=== PATIENT | male | born 1975 | race Caucasian/White ===

== ENCOUNTER 2018-03-09 23:21 | Emergency (ER) | payer SELFPAY ==
[2018-03-10 02:30] LABS: CREATINE KINASE 229 UL (21-232); TROPONIN-I < 0.017 ng/mL (0.000-0.060)
== END 2018-03-10 03:06 | disposition home or self-care (01) ==
LOC: D.ER 23:21
PROVIDERS: Family Medicine
DX: R51 Headache (principal)

== ENCOUNTER → 2019-12-04 08:05 | Outpatient (CLI) | payer OTHER ==
--- NOTE | 2019-12-08 11:54 | EC ---
PATIENT:EMILEE GRAF DATE OF SERVICE: 12/04/19 SEX: M MEDICAL RECORD: [id number] DATE OF : 71 LOCATION:[facility] AGE OF PATIENT: 43 ADMISSION DATE: 12/04/19 REFERRING PHYSICIAN: INTERPRETING PHYSICIAN: SOCO LOZA MD ECHOCARDIOGRAM REPORT ECHO CHARGES 4 ECHO COMPLETE Date: 12/04/19 CLINICAL DIAGNOSIS: ANGINA/RUIZ/SOB ECHOCARDIOGRAPHIC MEASUREMENTS (adult normal given) AC root (d.<3.7cm) 3.0 cm LV Septum d (<1.2 cm> 0.7 cm Valve Excursion 1.6 cm LV Septum (systole) 1.1 cm Left Atria (s.<4.0cm> 3.6 cm LVPW d(<1.2cm) 0.8 cm RV (d.<2.3cm) 2.3 cm LVPW (sytole) 1.3 cm LV diastole(<5.6CM) 4.8 cm MV E-F(>70mm/sec) cm LV systole 3.3 cm LVOT Diameter 2.0 cm MV exc.(>10mm) cm Est.ejection fraction (50-75%) % DOPPLER: LVIT cm/sec A 51.0 cm/sec E 80.0 cm/sec LA cm/sec RVSP 17.0 mmHg LVOT 90.0 cm/sec AOP1/2T m/s Asc. Ao 112 cm/sec RVOT 64.0 cm/sec RA cm/sec PA 88.0 cm/sec AV Gradient Peak 5.1 mmHg AV Mean 2.6 mmHg AV Area 2.5 cm MV Gradient Peak 3.4 mmHg MV Mean 1.5 mmHg MV Area cm COMMENTS: OP - HC Time Clock Mechanic: 1 SKYLA BETHEL Toddler Caregiver: 1 Dr. Loza TAPE# PACS Pericardial Effusion N DATE OF SERVICE: FINDINGS: 1. Left ventricular chamber size is within normal limits. Left ventricular systolic function is normal. Overall ejection fraction estimated at 55%. 2. Left atrium, right atrium, right ventricular chamber sizes are within normal limits. 3. Valvular structures have normal structure and motion. 4. Doppler interrogation reveals trace tricuspid regurgitation, no other valvular insufficiency or stenosis. ECHOCARDIOGRAM REPORT [id number] EMILEE GRAF 5. No evidence of pericardial effusion or left ventricular thrombus. TRANSINT:[id number] Voice Confirmation ID: [id number] DOCUMENT ID: [id number] SOCO LOZA MD at 1154 CC: [id number] DICTATION DATE: 12/05/19 1004 STEM ASSEMBLER: 12/05/19 1230 DEP CLI 12/04/19 [place] [id number]
--- NOTE | 2019-12-08 11:54 | ST ---
PATIENT:EMILEE GRAF MEDICAL RECORD: [id number] SEX: M LOCATION:[facility] ORDER #: ADMISSION DATE: 12/04/19 AGE OF PATIENT: 43 REFERRING PHYSICIAN: INTERPRETING PHYSICIAN: SOCO COLES MD DATE OF SERVICE: 12/04/2019 PROCEDURE: Exercise stress test. INDICATIONS: Angina, shortness of breath. TECHNIQUE: He was exercised on standard Fernandez protocol for 8 minutes 30 seconds, stopped due to chest discomfort. He developed chest discomfort, shortness of breath requiring the test to be terminated. There were; however, no EKG changes to suggest repeating this with nuclear imaging. TRANSINT:[id number] Voice Confirmation ID: [id number] DOCUMENT ID: [id number] SOCO COLES MD at 1154 CC: [id number] DICTATION DATE: 12/05/19 1521 BLOOD DONOR UNIT ASSISTANT: 12/06/19 0657 DEP CLI 12/04/19 [place] [id number] [place] [address]
== END | disposition home or self-care (01) ==
LOC: D.HCCARDIO 08:05
PROVIDERS: ATTEND Internal Medicine Interventional Cardiology
DX: I20.9 Angina pectoris, unspecified (principal)

== ENCOUNTER → 2019-12-29 12:50 | Outpatient (CLI) | payer OTHER | END | disposition home or self-care (01) | LOC: D.HCCARDIO 09:30 | PROVIDERS: ATTEND Internal Medicine Cardiovascular Disease | DX: I20.9 Angina pectoris, unspecified (principal) ==

== ENCOUNTER 2020-01-19 09:34 | Outpatient (CLI) | payer OTHER ==
[~2020-01-19] VITALS: Ht 167.6 cm; Wt 77.3 kg
--- NOTE | ~2020-01-19 | OP ---
PATIENT NAME: EMILEE GRAF MEDICAL RECORD: [id number] :71 LOCATION:[facility] ADMISSION DATE: SURGEON: SOCO COLES MD DATE OF OPERATION: 01/19/2020 PROCEDURES: 1. PTCA stent LAD. 2. IFR. 3. Left heart catheterization. 4. Selective coronary angiography. 5. Left ventriculogram. INDICATION: Angina and coronary artery disease. PROCEDURE IN DETAIL: After informed consent was obtained and after a detailed description of the risks, benefits as well as alternative therapies, the patient elected to proceed with angiogram and heart catheterization. The right radial area was prepped and draped in normal sterile fashion. Right radial artery was cannulated via modified Seldinger technique with placement of 6-Greenlandic sheath. All catheters exchanged through this sheath. FINDINGS: Left ventriculogram was performed in standard 30-degree CHILEL view, reveals good cardiac wall motion throughout all segments. Overall ejection fraction estimated 60%. SELECTIVE CORONARY ANGIOGRAPHY: 1. Left main is with no significant angiographic disease. 2. Left anterior descending has 80% stenosis in the mid vessel and IFR is abnormal. 3. The left circumflex has mild irregularities, but no flow-limiting stenosis. 4. Right coronary has mild irregularities, but no flow-limiting stenosis. PTCA STENT OF THE LAD: The stent used was a 2.5 x 12 mm Integrity. Result was 0% residual stenosis. OVERALL IMPRESSION: Successful PTCA stent of the LAD going from 80% initial stenosis to 0% residual. TRANSINT:[id number] Voice Confirmation ID: [id number] DOCUMENT ID: [id number] SOCO COLES MD CC: [id number] DICTATION DATE: 01/19/20 1133 EXOTIC DANCER: 01/19/20 1607 DEP CLI 01/19/20 [facility] [address] [place] [address]
--- NOTE | ~2020-01-19 | HEMODYNAMI ---
PATIENT:EMILEE GRAF MEDICAL RECORD: [id number] : 71 LOCATION:[facility] ADMISSION DATE: 01/19/20 Generatedon:01/19/202011:36 Patient name: EMILEE GRAF Patient #: [id number] SSN: [id number] : 1975 Date of study: 01/19/2020 Page: Of Hemodynamic Procedure Report Patient Data Patient Demographics Procedure consent was obtained First Name: EMILEE Gender: Male Last Name: LESIA : 1975 [facility] Initial: ABILIO Age: 44 year(s) Patient #: [id number] Race: SSN: [id number] Additional ID: [id number] Contact details Address: [address] [place] [address] [address] State: [place] City: [facility] Zip code: [address] Past Medical History Allergies: No known allergies Admission Admission Data Admission Date: 01/19/2020 Admission Time: 9:34 Arrival Date: 01/19/2020 Arrival Time: 0:00 Admit Source: Other Insurance Payor: Private health insurance [facility] #: [id number] Height (in.): 66 BSA: 1.87 (m2) Height (cm.): 167.64 BMI: 27.5 (kg/m2) Weight (lbs.): 170.35 Weight (kg.): 77.27 Lab Results Lab Result Date: 01/19/2020 Lab Result Time: 0:00 Biochemistry Name Units Result Min Max BUN mg/dl 11 --(-*--)-- 7 18 Creatinine mg/dl 1.2 --(---*)-- 0.6 1.3 eGFR ml/min 69 *-(----)-- 90 120 NONAFRICAN CBC Name Units Result Min Max Hematocrit % 46.3 --(-*--)-- 42 54 Hemoglobin g/dl 15.3 --(-*--)-- 13.5 17.5 Procedure Procedure Types Cath Procedure Diagnostic Procedure [facility] w/Coronaries Sedation Charges Moderate Sedation up to 15 minutes PCI Procedure Coronary Stent Coronary Stent Initial Hemochron ACT Test Procedure Description Procedure Date Procedure Date: 01/19/2020 Procedure Start Time: 11:19 Procedure End Time: 11:33 Procedure Staff Name Function Asad Loza MD Performing Physician Kalie Henry RT Monitor Toma Puga RT Scrub Mariama Arguello RN Nurse Procedure Data Cath Procedure Fluoroscopy Diagnostic fluoroscopy Total fluoroscopy Time: 3.2 time: 3.2 min min Diagnostic fluoroscopy Total fluoroscopy dose: 347 dose: 347 mGy mGy Contrast Material Contrast Material Type Amount (ml) Isovue 370 59 Entry Location Entry Primary Successful Side Size Upsize Upsize Entry Closure Schaefer ccessful Closure Location (Fr) 1 (Fr) 2 (Fr) Remarks Device Remarks Radial Right 6 Fr Mechanical artery Short Compression Estimated blood loss: 10 ml Diagnostic catheters Device Type Used For End Catheter Placement DIAGNOSTIC [place] 110cm 5 Procedure Fr catheter ([id number]) Procedure Complications No complications Procedure Medications Medication Administration Route Dosage Oxygen etCO2 Nasal cannula 2 l/min Lidocaine 2% added to field 20 Heparin Flush Bag added to field 2 bags (1000units/500ml NS) 0.9% NaCl I.V. 100 ml/hr Radial Cocktail I.A. 1 syringe (Verapamil 2mg/Nitro 400mcg/Heparin 1500units) Versed I.V. 2 mg Fentanyl I.V. 50 mcg Versed I.V. 2 mg Fentanyl I.V. 50 mcg Heparin Bolus I.V. 4000 units Integrilin (Bolus I.V. 6.8 ml 2mg/ml) Plavix P.O. 600 mg Hemodynamics Rest BSA: 1.87 (m2) HGB: 15.3 (g/dl) O2 Consumption: Estimated: 234.44 (ml/min) O2 Co nsumption indexed: Estimated:125.37 (ml/min/m) Heart Rate: 83 (bpm) Snapshots Pre Cath Intra NCS Post Cath Vital Signs Time Heart Resp SPO2 etCO2 NIBP (mmHg) Rhythm Pain Sedation Rate (ipm) (%) (mmHg) Status Level (bpm) 11:10:07 82 13 96 34.5 127/84(101) NSR 0 (11) 10(A) , No pain 11:14:19 85 17 98 37.5 121/80(96) NSR 0 (11) 10(A) , No pain 11:18:31 82 14 96 14.2 120/79(105) NSR 0 (11) 10(A) , No pain 11:22:45 94 12 95 1.5 113/70(86) NSR 0 (11) 9(A) , No pain 11:26:59 89 12 92 0 108/54(75) NSR 0 (11) 9(A) , No pain 11:31:09 85 14 93 0.7 115/69(89) NSR 0 (11) 9(A) , No pain Medications Time Medication Route Dose Verified Delivered Reason Not es Effectiveness by by 11:09:39 Oxygen etCO2 2 l/min Asad Leslie used for Nasal Dago Arguello RN procedure cannula 11:09:41 Radial Cocktail I.A. 1 Asad Kamara for (Verapamil syringe Dago Loza MD vasodilation 2mg/Nitro 400mcg/Heparin 1500units) 11:10:13 Lidocaine 2% added 20ml Asad aKmara for local to vial Dago Loza MD anesthetic field 11:10:19 Heparin Flush added 2 bags Asad Kamara used for Bag to Dago Loza MD procedure (1000units/500ml field NS) 11:10:27 0.9% NaCl I.V. 100 Asad Leslie Per physician ml/hr Dago Arguello RN 11:14:02 Versed I.V. 2 mg Asad Levineie for sedation Dago Arguello RN 11:14:08 Fentanyl I.V. 50 mcg Asad Levineie for sedation Dago Arguello RN 11:22:18 Versed I.V. 2 mg Asad Levineie for sedation Dago Arguello RN 11:22:22 Fentanyl I.V. 50 mcg Asad Levineie for sedation Dago Arguello RN 11:27:45 Heparin Bolus I.V. 4000 Asad Leslie for aleida ified units Dago Arguello RN anticoagulation with dr loza 11:29:18 Integrilin I.V. 6.8 ml Asad Levineie for was crystal (Bolus 2mg/ml) Dago Arguello RN antiplatelet 3.2 ml therapy of vial 11:35:39 Plavix P.O. 600 mg Asad Leslie for Dago Arguello RN antiplatelet therapy Procedure Log Time Note 10:56:15 Informed consent obtained and on chart 10:57:17 Arrival Date: 01/19/2020 12:00:00 AM 10:57:26 Procedure Status Elective Heart Cath (OP). 10:57:29 Mariama Arguello RN sent for patient. Start room use. 10:57:33 Time tracking: Regular hours (M-F 7:00 - 5:00) 10:57:42 Plan of Care:Hemodynamics will remain stable., Cardiac rhythm will remain stable., Comfort level will be maintained., Respiratory function will remain adequate., Patient/ family verbilizes understanding of procedure., Procedure tolerated without complication., Recovers from procedure without complications.. 11:00:19 Patient received from Pre/Post Procedure Room to CCL 1 Alert and oriented. Tansferred to table in Supine position. 11:00:21 Warm blankets applied, and alyson hugger turned on for patient comfort. 11:00:22 Correct patient and procedure confirmed by team. 11:00:22 ECG and BP/O2 sat monitors applied to patient. 11:09:04 Vital chart was started 11:09:05 Full Disclosure recording started 11:09:14 H&P Date Dictated: 01/14/2020 Within 30 days and on chart.. 11:09:16 Pre-procedure instructions explained to patient. 11:09:16 Pre-op teaching completed and patient verbalized understanding. 11:09:19 Family unavailable. 11:09:21 Patient NPO since Midnight. 11:09:33 Patient allergic to No known allergies 11:09:37 Is the patient allergic to Iodine/contrast media? No. 11:09:39 Oxygen 2 l/min etCO2 Nasal cannula was administered by Mariama Arguello RN; used for procedure; Verbal order read back and verified. 11:09:40 Was the patient premedicated? N/A 11:09:41 Radial Cocktail (Verapamil 2mg/Nitro 400mcg/Heparin 1500units) 1 syringe I.A. was administered by Asad Loza MD; for vasodilation; Verbal order read back and verified. 11:09:42 Is patient on blood thinner?No 11:09:44 Patient diabetic? No. 11:09:46 If diabetic: On Metformin? N/A 11:09:48 ----Pre-sedation anethsthesia assessment.---- 11:09:52 Previous problem with sedation/anesthesia? No ? 11:09:55 Snore? Yes 11:09:56 Sleep apnea? No 11:09:58 Deviated septum? No 11:10:00 Opens mouth fully? Yes 11:10:01 Sticks out tongue? Yes 11:10:06 Airway obstruction? No ? 11:10:08 Dentures? No ? 11:10:10 Pre procedure: right dorsailis pedis pulse 2+ Normal; easily identifiable; not easily obliterated 11:10:12 Modified Scot's test Ulnar < 7 seconds 11:10:13 Lidocaine 2% 20ml vial added to field was administered by Asad Loza MD; for local anesthetic; Verbal order read back and verified. 11:10:15 Patient pain scale 0/10 ?. 11:10:19 Heparin Flush Bag (1000units/500ml NS) 2 bags added to field was administered by Asad Loza MD; used for procedure; Verbal order read back and verified. 11:10:21 IV patent on arrival in right antecubital with 0.9% NaCl at [facility]. 11:10:26 Lab results completed and on chart. 11:10:27 0.9% NaCl 100 ml/hr I.V. was administered by Mariama Arguello RN; Per physician; Verbal order read back and verified. 11:10:30 Stress Test: yes; normal ? 11:10:33 Right Radial & Right Groin area was prepped with chlora-prep and draped in sterile fashion 11:10:36 Alarms reviewed by R. N. 11:10:36 Sharps counted by scrub and verified by R.N. 11:11:05 Lab Result : BUN 11 mg/dl 11:11:05 Lab Result : Creatinine 1.2 mg/dl 11:11:05 Lab Result : eGFR NONAFRICAN 69 ml/min 11:11:05 Lab Result : Hemoglobin 15.3 g/dl 11:11:05 Lab Result : Hematocrit 46.3 % 11:11:12 Baseline sample Acquired. 11:11:15 Rhythm: sinus rhythm 11:11:18 Use device set Radial Dx or PCI 11:11:19 ACIST Syringe (61243) opened to sterile field. 11:11:20 Medline Cath Pack ([id number]) opened to sterile field. 11:11:20 Bag Decanter () opened to sterile field. 11:11:21 ACIST Hand Control (98991) opened to sterile field. 11:11:22 ACIST Manifold (12120) opened to sterile field. 11:11:23 Tegaderm 4 x 4 (1626W) opened to sterile field. 11:11:24 MBrace Wrist Support ([id number]) opened to sterile field. 11:11:26 EMERALD Guide Wire (963-309) opened to sterile field. 11:11:27 SHEATH 6FR RAIN (0580852) opened to sterile field. 11:11:46 Patient Height : 66 inches 11:11:49 Patient Weight : 170.35 lbs 11:11:53 Admit Source: Other 11:11:54 Insurance Payor : Private health insurance 11:12:33 --------ALL STOP TIME OUT------ 11:12:34 Final Timeout: patient, procedure, and site verified with staff and physician. All members of the team are in agreement. 11:12:37 Right Radial & Right Groin site verified by team. 11:12:41 Fire Safety Assessment: A--An alcohol-based skin anteseptic being used preoperatively., C--Open oxygen or nitrous oxide is being used., D--An ESU, laser, or fiber-optic light is being used. 11:12:45 Physical assessment completed. ASA score P 2 - A patient with mild systemic disease as per Asad Loza MD. 11:12:52 2) 60-89 Mildly reduced kidney function, and other findings (as for stage 1) point to kidney disease. 11:12:57 Maximum allowable contrast dose (3.7 X eGFR X 0.75)191 ml. 11:13:00 Sedation plan: IV Moderate Sedation Medication:Versed, Fentanyl 11:14:02 Versed 2 mg I.V. was administered by Mariama Arguello RN; for sedation; Verbal order read back and verified. 11:14:08 Fentanyl 50 mcg I.V. was administered by Mariama Arguello RN; for sedation; Verbal order read back and verified. 11:18:19 Procedure started. 11:19:41 Local anesthetic to right radial artery with Lidocaine 2% by Asad Loza MD.INITIAL ACCESS ONLY 11:20:01 A 6 Fr Short sheath was inserted into the Right Radial artery 11:20:34 A DIAGNOSTIC [place] 110cm 5 Fr catheter (315096) was advanced over the wire and used for Procedure. 11::25 LV gram done using CHILEL 11::27 Injector settings: Ml/sec: 5, Volume: 15, 11:21:56 EF : 60 % 11:22:00 LCA angiography performed. 11:22:04 Injector settings: Ml/sec: 3, Volume: 6, 11::18 Versed 2 mg I.V. was administered by Mariama Arguello RN; for sedation; Verbal order read back and verified. 11::22 Fentanyl 50 mcg I.V. was administered by Mariama Arguello RN; for sedation; Verbal order read back and verified. 11::43 RCA angiography performed. 11::46 Injector settings: Ml/sec: 3, Volume: 6, 11::57 ACCDominant side:Right 11:23:01 Proceeding to intervention. 11:23:06 Use device set LANA PCI 11:23:11 INFLATOR Merit BasixCompak (HL7415) opened to sterile field. 11:23:14 GUIDE 6FR XBLAD 3.5 catheter (58934521) opened to sterile field. 11:23:20 [place] Verrata Plus pressure wire (59643R) opened to sterile field. 11:24:18 6 Fr XBLAD 3.5 guide catheter was inserted over the wire 11:25:30 FFR/IFR wire advanced. 11:26:23 Wire advanced across lesion. 11:27:09 LAD lesion measured at .69 with IFR 11:27:45 Heparin Bolus 4000 units I.V. was administered by Mariama Arguello RN; for anticoagulation; verified with dr loza Verbal order read back and verified. 11:27:53 Pre PCI Site: [place] LAD has 80% stenosis. 11:29:18 Integrilin (Bolus 2mg/ml) 6.8 ml I.V. was administered by Mariama Arguello RN; for antiplatelet therapy; wasted 3.2 ml of vial Verbal order read back and verified. 11:29:26 Place stent Inflation Number: 1 A INTEGRITY RX 2.5 x 12 stent ([id number]) was prepped and advanced across the Mid LAD 80. The stent was deployed at 15 JEVON for 0:00 (min:sec) . 11:29:43 Stent catheter was removed intact over wire. 11::44 Wire removed. 11:29:44 Guide catheter removed. 11:30:09 ZEPHYR REGULAR TR BAND (268563) opened to sterile field. 11:30:19 Sheath removed intact; hemostasis achieved with Mechanical Compression to the Right Radial artery. 11:30:21 Procedure ended.(Physican Out) 11:31:04 Fluoroscopy time 03.20 minutes. 11:31:08 Fluoroscopy dose: 347 mGy 11:31:08 Flurop Dose total: 347 11:31:14 Dose Area Product 78177 mGy/cm. 11:31:18 Contrast amount:Isovue 370 59ml. 11:31:21 Maximum allowable dose exceeded? No. 11:31:22 Sharps counted by scrub and verified by R.N. 11:31:25 Eastern band inflated with 11cc of air. 11:31:28 Post Procedure Pulses reassessed and unchanged 11:31:31 Post procedure: right dorsailis pedis pulse 2+ Normal; easily identifiable; not easily obliterated. 11:31:34 Post-procedure physical assessment completed. ASA score P 2 - A patient with mild systemic disease as per Asad Loza MD. 11:31:36 Post procedure rhythm: unchanged. 11:31:39 Estimated blood loss: 10 ml 11:31:41 Post procedure instruction explained to patient.Patient verbalizes understanding. 11:31:41 Patient needs reinforcement of post procedure teaching. 11:32:10 Procedure type changed to Cath procedure, Diagnostic procedure, LHC, [facility] w/Coronaries, Sedation Charges, Moderate Sedation up to 15 minutes, PCI procedure, Coronary Stent, Coronary Stent Initial, Hemochron ACT Test 11:32:45 Procedure and supply charges have been captured, reviewed, submitted and are correct. 11:32:48 Procedure Complication : No complications 11:32:50 Vital chart was stopped 11:32:54 [facility] Findings: MVD- PCI performed (see procedure note) 11:32:57 Operative report dictated upon procedure completion. 11:32:58 See physician's report for complete and final results. 11:33:00 Report given to Pre/Post Procedure Room. 11:33:04 Patient transfered to Pre/Post Procedure Room with Stretcher. 11:33:06 Procedure ended. 11:33:06 Full Disclosure recording stopped 11:35:37 ACC-PCI Only Patient was given prescriptions, or instructed by Asad Loza MD to start/continue the following medications upon discharge: Plavix 11:35:38 End room use (Document Last) 11:35:39 Plavix 600 mg P.O. was administered by Mariama Arguello RN; for antiplatelet therapy; Verbal order read back and verified. 11:35:49 End room use (Document Last) 11:36:02 ACT drawn and resulted at 365 seconds. (normal therapeutic range 180-240 seconds). 11:36:06 End room use (Document Last) Intervention Summary Intervention Notes Time ActionType Lesion and Equipment Action# Pressure Duration Attributes Used 11:29:26 Place stent Mid LAD INTEGRITY RX 1 15 00:00 2.5 x 12 stent ([id number]) Device Usage Item Name Manufacture Quantity Catalog Hospital Part Current Min imal Lot# / Number Charge Number Stock Stock Serial# Code ACIST Acist 1 67683 037529 549679 849144 20 Syringe Medical (63590) Systems Inc Medline Cath Medline 1 [id number] 776715 74945 241201 5 Pack ([id number]) Bag Decanter Microtek 1 2002S 185360 44328 439044 5 (2002S) Medical Inc. ACIST Hand Acist 1 78079 187376 626561 706166 5 Control Medical (39447) Systems Inc ACIST Acist 1 31842 839131 987873 012157 5 Manifold Medical (44622) Systems Inc Tegaderm 4 x 3M 1 1626W 801027 054072 394477 5 4 (1626W) MBrace Wrist Advanced 1 140-0250-00 917064 52869 260328 5 Support Vascular (350285991) Dynamics EMERALD Cardinal 1 392-566 951428 780046 535645 5 Guide [facility] Zynstra (044-416) SHEATH 6FR Cardinal 1 5891092 056774 4238966 243562 5 [facility] (2679243) DIAGNOSTIC Terumo 1 40-4704 754283 627406 974921 5 [place] 110cm 5 Fr catheter (275633) INFLATOR Merit 1 LG3206 346376 349956 354797 15 [facility] NineSixFive BasixCompak (NP0401) GUIDE 6FR Cardinal 1 [id number] 232970 244578 200582 10 XBLAD 3.5 Health catheter (32370530) [place] 1 52226Q 332188 402901549 843637 5 Verrata Plus pressure wire (67993A) INTEGRITY RX Medtronic 1 [id number] 591804 966271 213625 5 [id number] 2.5 x 12 stent ([id number]) ZEPHYR Cardinal 1 664864 407257 8312965 469564 5 REGULAR TR Health BAND (409239) Signature Audit [place] Stage Time Signature Unsigned Intra-Procedure 01/19/2020 Kalie Henry 11:35:49 AM RT(R) Intra-Procedure 01/19/2020 Mariama Arguello RN 11:36:06 AM Intra-Procedure 01/19/2020 Asad Loza 11:36:20 AM [place] [id number] [place] [address]
[2020-01-19] MEDS ORDERED: SEROQUEL25 MG PO (09:50)
[2020-01-19] MEDS ORDERED: LIPITOR80 MG PO (09:51)
[2020-01-19] MEDS ORDERED: PROZAC20 MG PO (09:51)
[2020-01-19] MEDS ORDERED: ELAVIL25 MG PO (09:51)
[2020-01-19] MEDS ORDERED: TRAZODONE HCL150 MG PO (09:52)
[2020-01-19 10:10] VITALS: BP 117/83; Ht 167.6 cm; Wt 77.3 kg
[2020-01-19 10:22] LABS: BASOPHILS 0.1 % (0-2); EOSINOPHILS 1.7 % (0-7); HEMATOCRIT 46.3 % (42.0-54.0); HEMOGLOBIN 15.3 g/dL (13.5-17.5); IMMATURE GRANULOCYTES 0.2 % (0-5); LYMPHOCYTES 14.1 % (15-50); MCH 30.3 pg (26.0-34.0); MCV 91.7 fL (80.0-100.0); MEAN PLATELET VOLUME 9.5 fL (7.4-10.4); MONOCYTES 5.5 % (2-11); NEUTROPHILS 78.4 % (40-80); PLATELET COUNT 257 10x3/uL (130-400); RBC 5.05 10x6/uL (4.20-6.10); RDW 14.2 % (11.5-14.5); WBC 13.8 10x3/uL (4.8-10.8)
[2020-01-19 10:44] LABS: ANION GAP 7.9 mmol/L (8-16); CALCIUM 9.3 mg/dL (8.5-10.1); CARBON DIOXIDE 30.3 mmol/L (21.0-32.0); CHOL - HDL RATIO 6.7 ratio (2.3-4.9); CREATININE - SERUM 1.2 mg/dL (0.6-1.3); LDL-HDL RATIO 4.4 ratio (1.5-3.5); POTASSIUM - SERUM 4.2 mmol/L (3.5-5.1)
[2020-01-19] MEDS ORDERED: BAYER CHEWABLE81 MG PO (11:42)
[2020-01-19] MEDS ORDERED: PLAVIX75 MG PO (11:42)
--- NOTE | 2020-01-19 11:45 | NUR ---
PT REC'D TO ROOM 4 VIA STRETCHER FROM ELECTRIC POWER LINE EXAMINER. MONITORS ESTAB. PT AWAKENS EASILY. SEE DATE NIGHT CAREGIVER. ALARMS ON AND C/L IN REACH.
--- NOTE | 2020-01-19 12:00 | NUR ---
R WRIST SITE C/D/I, NO S/S BLEEDING OR HEMATOMA. VSS. ALARMS ON AND C/L IN REACH.
--- NOTE | 2020-01-19 12:45 | NUR ---
R WRIST SITE C/D/I, NO S/S BLEEDING OR HEMATOMA. PULSE PALP, BRISK CAP REFILL. VSS, C/L IN REACH.
--- NOTE | 2020-01-19 13:15 | NUR ---
R WRIST SITE C/D/I, NO S/S BLEEDING OR HEMATOMA. HAND WARM, NO NUMBNESS OR TINGLING REPORTED. VSS. PT DENIES NEEDS.
--- NOTE | 2020-01-19 13:45 | NUR ---
R WRIST SITE C/D/I, NO S/S BLEEDING OR HEMATOMA. HAND WARM WITH BRISK CAP REFILL. VSS. C/L IN REACH.
--- NOTE | 2020-01-19 14:04 | NUR ---
SPOKE WITH CARL, PT SIG OTHER TO ARRANGE PT GOING HOME AT 1530. ALL DISCHARGE INSTRUCTIONS REVIEWED INCLUDING RESTRICTIONS, MEDS AND FOLLOWUP. SHE VERBALIZES UNDERSTANDING.
--- NOTE | 2020-01-19 14:35 | NUR ---
3CC AIR REMOVED FROM Z BAND. NO S/S BLEEDING. COFFEE PROVIDED PER REQUEST.
--- NOTE | 2020-01-19 14:50 | NUR ---
TOTAL OF 6CC AIR REMOVED FROM Z BAND - NO S/S BLEEDING OR HEMATOMA. PT DENIES NEEDS. VSS. C/L IN REACH.
--- NOTE | 2020-01-19 15:11 | NUR ---
ALL OF AIR REMOVED FROM Z BAND, NO S/S BLEEDING OR SWELLING. PIV D/C'D INTACT, DSG APPLIED.
--- NOTE | 2020-01-19 15:25 | NUR ---
Z BAND OFF, DSG APPLIED, NO S/S SWELLING OR BLEEDING. ALL DISCHARGE INSTRUCTIONS REVIEWED WITH PT. PT UP TO GET DRESSED.
--- NOTE | 2020-01-19 15:30 | NUR ---
PT DISCHARGED VIA WC TO PRIVATE VEHICLE WITH ALL PAPERWORK, PRESCRIPTION AND BELONGINGS.
== END 2020-01-19 15:30 | disposition home or self-care (01) ==
LOC: D.CATH 09:34
PROVIDERS: ATTEND Internal Medicine Interventional Cardiology
DX: I25.119 Atherosclerotic heart disease of native coronary artery with unspecified angina pectoris (principal); R06.09 Other forms of dyspnea; E78.5 Hyperlipidemia, unspecified; F17.200 Nicotine dependence, unspecified, uncomplicated